=== PATIENT | female | born 1990 | race Caucasian/White ===

== ENCOUNTER 2017-07-15 00:13 | Inpatient (IN) | payer OTHER ==
[~2017-07-15] VITALS: Ht 160 cm; Wt 89.0 kg
[~2017-07-15 00:13] MED LIST: FALMINA1 EACH PO; HYDROCODON-ACE1 EA11 PO; NORCO 5-325 TA1 EACH PO; ZOFRAN4 MG PO
--- NOTE | 2017-07-15 00:59 | PR ---
[facility] [address] [facility] [place] [address] Signed Progress Notes IP Datetime Report Generated by CPN: 07/15/2017 00:59 PROGRESS NOTES: [id number] VITAL SIGNS: [id number] Vital Signs: Reviewed; Within Normal Limits EXAM: [id number] Dilatation: 9.0 Effacement: 100 Station: -2 Uterine Contractions: every 3 minutes MEMBRANES: [id number] Membrane Status: Intact ROM Note: AROM without difficulty with clear fluid Comments: Doing well Fetus A: [id number] FHR Baseline: 150 Variability: Moderate 6-25bpm Accelerations: 15X15 Presentation: Vertex Fetus B: [id number] Signing Physician: Jake Murphy MD CC: *Electronically Signed* 07/15/17 0059 JAKE MURPHY MD PATIENT NAME: NELSON MEADE PROGRESS NOTE DATE OF : 90 PHYSICIAN: JAKE MURPHY MD RPT #: [id number] REPORT IS CONFIDENTIAL AND NOT TO BE RELEASED WITHOUT AUTHORIZATION
--- NOTE | 2017-07-15 01:30 | PR ---
[facility] [address] [facility] [place], [place] [address] Signed Progress Notes IP Datetime Report Generated by CPN: 07/15/2017 01:30 PROGRESS NOTES: [id number] Impression: Normal progression of labor Plan: Continue present management VITAL SIGNS: [id number] Vital Signs: Reviewed; Within Normal Limits EXAM: [id number] Dilatation: 9.0 Effacement: 100 Station: -1 Uterine Contractions: every 2-3 minutes MEMBRANES: [id number] Membrane Status: Ruptured Amniotic Fluid Color: Clear ROM Note: AROM without difficulty with clear fluid Comments: Getting very uncomfortable, wanting Epidural. Anesthesia on the way. Fetus A: [id number] FHR Baseline: 125 Variability: Moderate 6-25bpm Accelerations: 15X15 Presentation: Vertex Fetus B: [id number] Signing Physician: Jake Murphy MD CC: *Electronically Signed* 07/15/17 0130 JAKE MURPHY MD PATIENT NAME: NELSON MEADE PROGRESS NOTE DATE OF : 90 PHYSICIAN: JAKE MURPHY MD RPT #: [id number] REPORT IS CONFIDENTIAL AND NOT TO BE RELEASED WITHOUT AUTHORIZATION
--- NOTE | 2017-07-15 07:02 | NUR ---
07/15/17 0702 Shannan Salazar TO [facility] ROOM, SIGNIFICANT OTHER/MOTHER AND BABY AT BEDSIDE. PT DENIES PAIN, NAUSEA OR HEADACHE.
--- NOTE | 2017-07-16 08:32 | PR ---
[facility] [address] [facility] [place] [address] Signed PP Progress Notes Datetime Report Generated by CPN: 07/16/2017 08:31 SUBJECTIVE: [id number] Pain: Within normal limits Nausea/Vomiting: Denies Vital Signs: [id number] Vital Signs: Reviewed; Within Normal Limits Notable Details: PP Hgb/Hct = 10.9/30.9 EXAM: [id number] Abdomen/Uterus: Normal Lochia: Normal Extremities: Normal Incision: Normal IMPRESSION/PLAN/PROCEDURES: [id number] Impression: Normal progression Plan: Continue present management Procedures: None Progress Notes: Doing well, without complaint. Signing Physician: Jake Murphy MD CC: *Electronically Signed* 07/16/17 0831 JAKE MURPHY MD PATIENT NAME: NELSON MEADE PROGRESS NOTE DATE OF : 90 PHYSICIAN: JAKE MURPHY MD RPT #: [id number] REPORT IS CONFIDENTIAL AND NOT TO BE RELEASED WITHOUT AUTHORIZATION
--- NOTE | 2017-07-17 10:45 | OR ---
[facility] [address] [place], [place] [address] Signed DATE OF OPERATION: 07/15/2017 SURGEON: Brian Escobar MD PREOPERATIVE DIAGNOSES: Failure to progress, cephalopelvic disproportion, term labor. POSTOPERATIVE DIAGNOSES: Failure to progress, cephalopelvic disproportion, term labor. PROCEDURE: Primary low-transverse segment cesarian section, delivery of live male . FUSE CUTTER: Dr. Cui. ANESTHESIA: Spinal. ESTIMATED BLOOD LOSS: 700 mL. COMPLICATIONS: None. DRAINS: Herrera to bladder. FINDINGS: Live male infant, Apgars of 8 and 9, weight 6 pounds 14 ounces in the straight OP presentation. Normal uterus. Normal tubes and ovaries bilateral. DESCRIPTION: The patient was brought into the operating room, placed in supine position after adequate spinal anesthesia was obtained, and was prepped and draped in usual sterile fashion. The patient already had a Herrera catheter in place. A Pfannenstiel skin incision was made with a scalpel. Subcutaneous tissue was dissected with scalpel and a Bovie. The fascia was nicked with scalpel and extended in a transverse fashion using curved scissors. The underlying abdominal musculature was Electronically Signed By: BRIAN ESCOBAR MD 07/17/17 1045 PATIENT NAME: NELSON MEADE OPERATIVE REPORT DATE OF : 90 PHYSICIAN: BRIAN ESCOBAR MD REPORT #: [id number] REPORT IS CONFIDENTIAL AND NOT TO BE RELEASED WITHOUT AUTHORIZATION [facility] [address] [place], [place] [address] Signed bluntly and sharply from the fascia above and below the incision. The abdominal musculature was bluntly and sharply along the midline. The peritoneum was grasped with hemostats, elevated, and nicked with Metzenbaum scissors, and extended in a vertical fashion. The Narendra self-retaining retractor was inserted into the incision and tightened in place. Lower uterine segment was identified, noted to be thin and somewhat ballooning. The bladder was noted to be below the area of dissection, so the vesicouterine peritoneum was nicked with scalpel. The lower uterine segment was then nicked with scalpel and extended in transverse fashion using finger dissection and clear fluid came from the incision. The was noted to be in vertex OP presentation. 's head wedged tightly in the pelvis. Hand was used to elevate the head and then delivered the head through the incision, and the rest of the infant was then easily delivered from the incision. The mouth and nose were suctioned with bulb syringe, while the cord was doubly clamped and cut. The was passed off the table in good condition to awaiting nurse. Placenta was manually removed and uterine cavity was explored with lap pad to remove any retaining membranes. There was a small extension near the left angle down towards the bladder approximately 3 to 4 cm in length and T-clamp was placed at this angle. An angled stitch of 0 Monocryl was placed at one end of the incision. A running locking stitch of 0 Monocryl was used to close the small extension, and after removing the T-clamp and then the remaining incision was closed using a second running locking stitch of 0 Monocryl. Second layer of 0 Monocryl was used to imbricate the first layer using a running stitch starting at the left extension and continuing around the entire incision. There was small amount of bleeding at the right angle and finger was placed behind the broad ligament to make sure not to go through the back of the uterus or through the broad ligament and a tuoyur-yr-qayts stitch of 0 Monocryl was used to control the bleeding. The entire pelvis was irrigated, suctioned, and examined. Any superficial bleeding spots were cauterized with a Bovie. There was still minimal oozing, so Evicel was dripped on the incision along the entire length and including both angles and this did give good hemostasis. The Narendra self-retaining retractor was removed and sheath of ACell was placed over the lower uterine segment to help with healing. The anterior wall peritoneum was then closed using running stitch of 2-0 Vicryl suture. The abdominal musculature was reapproximated using interrupted stitches of 0 Vicryl suture. The abdominal wall incision was irrigated, suctioned, and examined, and any bleeding spots were cauterized with a Bovie. The fascia was closed using 2 running stitch of 0 Vicryl suture meeting in the midline. Subcutaneous tissue was irrigated, suctioned, examined, and any bleeding spots were cauterized with a Bovie. Subcutaneous tissue was closed using interrupted stitches of 3-0 Vicryl suture. Skin was reapproximated using skin clips. The patient tolerated the procedure well and went to recovery room in good condition. Sponge, needle, and instrument counts were correct at the end of procedure. Electronically Signed By: BRIAN ESCOBAR MD 07/17/17 1045 PATIENT NAME: NELSON MEADE OPERATIVE REPORT DATE OF : 90 PHYSICIAN: BRIAN ESCOBAR MD REPORT #: [id number] REPORT IS CONFIDENTIAL AND NOT TO BE RELEASED WITHOUT AUTHORIZATION [address], [place] [address] Signed MD ANG Dugan/MODL /[id number] Electronically Signed By: BRIAN ESCOBAR MD 07/17/17 1045 PATIENT NAME: HALINANELSON XENA OPERATIVE REPORT DATE OF : 90 PHYSICIAN: BRIAN ESCOBAR MD REPORT #: [id number] REPORT IS CONFIDENTIAL AND NOT TO BE RELEASED WITHOUT AUTHORIZATION
--- NOTE | 2017-07-18 09:47 | PR ---
[facility] [address] [facility] [place] [address] Signed PP Progress Notes Datetime Report Generated by CPN: 07/18/2017 09:47 SUBJECTIVE: [id number] Pain: Within normal limits Nausea/Vomiting: Denies Vital Signs: [id number] Vital Signs: Reviewed; Within Normal Limits Notable Details: PP Hgb/Hct = 10.9/30.9 EXAM: [id number] Abdomen/Uterus: Normal Lochia: Normal Extremities: Normal Incision: Normal IMPRESSION/PLAN/PROCEDURES: [id number] Impression: Normal progression Plan: Discharge Procedures: None Progress Notes: Doing well, ready to go home. Signing Physician: Jake Murphy MD CC: *Electronically Signed* 07/18/17 0947 JAKE MURHPY MD PATIENT NAME: NELSON MEADE PROGRESS NOTE DATE OF : 90 PHYSICIAN: JAKE MURPHY MD RPT #: [id number] REPORT IS CONFIDENTIAL AND NOT TO BE RELEASED WITHOUT AUTHORIZATION
== END 2017-07-18 15:40 | disposition home or self-care (01) | DRG 766 ==
LOC: FBCO 00:13 → FBC 00:38
PROVIDERS: ADMIT General Practice
PROC: 10D00Z1 Extraction of Products of Conception, Low, Open Approach (ICD-10-PCS; principal; 2017-07-15 06:09)
DX: O65.9 Obstructed labor due to maternal pelvic abnormality, unspecified (principal); Z3A.37 37 weeks gestation of pregnancy; Z37.0 Single live birth; O32.4XX0 Maternal care for high head at term, not applicable or unspecified; O62.1 Secondary uterine inertia
CPT/HCPCS: 01960; 01961; 36415; 85027; 94760; C1763; J0690; J2175; J2274; J2300; J2370; J2405; J2550; J2590; J3010; J3105; J7120

== ENCOUNTER 2020-04-14 22:30 | Emergency (ER) | payer OTHER ==
[~2020-04-14] VITALS: Ht 160 cm; Wt 83.9 kg
[2020-04-14] MEDS ORDERED: AMITRIPTYLINE H10 MG PO (22:54)
[2020-04-15] MEDS ORDERED: NORCO 5-325 TA1 EACH PO (00:19)
[2020-04-15] MEDS ORDERED: DICLOFENAC SODI75 MG PO (00:21)
== END 2020-04-15 00:27 | disposition home or self-care (01) ==
LOC: ED 22:30
DX: R10.31 Right lower quadrant pain (principal)
CPT/HCPCS: 74176; 80053; 81001; 83690; 84703; 85025; 96374; 96375; 99284-25; J1170; J1885; J2405

== ENCOUNTER 2021-10-06 16:54 | Emergency (ER) | payer BC ==
[~2021-10-06] VITALS: Ht 160 cm; Wt 85.7 kg
[~2021-10-06 16:54] MED LIST changes: +AMITRIPTYLINE H10 MG PO; +DICLOFENAC SODI75 MG PO
[2021-10-06] MEDS ORDERED: HYDRALAZINE HCL50 MG PO (18:10)
[2021-10-06] MEDS ORDERED: BUPROPION XL150 MG PO (18:10)
[2021-10-06] MEDS ORDERED: REGLAN10 MG PO (19:00)
== END 2021-10-06 19:12 | disposition home or self-care (01) ==
LOC: ED 16:54
DX: G43.909 Migraine, unspecified, not intractable, without status migrainosus (principal); H83.09 Labyrinthitis, unspecified ear; Z79.899 Other long term (current) drug therapy
CPT/HCPCS: 70450; 96374; 96375; 99284-25; J1200; J1885; J2765; J7030